=== PATIENT | female | born 1955 | race Caucasian/White ===

== ENCOUNTER 2016-09-22 10:57 | Outpatient (CLI) | payer OTHER ==
--- NOTE | 2016-09-24 08:00 | Mammography Report ---
DIGITAL SCREENING MAMMOGRAM: 09/22/2016 CLINICAL INDICATION: A 61-year-old nulliparous patient with history of benign right breast biopsy fo r screening. COMPARISON: 09/2015, 06/2014, 05/2013, 05/2012 TECHNIQUE: Routine CC and MLO projections were obtained of the breasts as well as bilateral laterall y exaggerated craniocaudal views. FINDINGS: The breasts again demonstrate heterogeneously dense fibroglandular parenchyma bilaterally. Biopsy marker in the right upper outer posterior breast is stable. A few punctate, typically benig n calcifications are present. No suspicious masses, clustered microcalcifications, or regions of arc hitectural distortion are identified. IMPRESSION: BENIGN FINDINGS. RECOMMENDATION: Routine annual screening unless otherwise clinically indicated. BIRADS CATEGORY 2 - BENIGN FINDINGS. STANDARD QUALIFYING STATEMENTS 1. This examination was reviewed with the aid of Computer-Aided Detection (CAD). 2. A negative or benign imaging report should not delay biopsy if clinically suspicious findings are present. Consider surgical consultation if warranted. More than 5% of cancers are not identified by i maging. 3. Dense breasts may obscure an underlying neoplasm. JOB #: [id number] EXT JOB #:[id number]
== END 2016-09-22 10:58 | disposition home or self-care (01) ==
LOC: DI.N 10:57
PROVIDERS: ATTEND Nurse Practitioner Primary Care
DX: Z12.31 Encounter for screening mammogram for malignant neoplasm of breast (principal)
CPT/HCPCS: 77067

== ENCOUNTER 2016-12-15 12:06 | Outpatient (CLI) | payer OTHER ==
--- NOTE | 2016-12-15 15:38 | CT Report ---
CT OF THE SINUSES: 12/15/2016 CLINICAL INDICATION: Sinusitis. TECHNIQUE: Axial CT images of the paranasal sinuses were obtained without intravenous contrast. Sagit gabriel and coronal reconstructions were performed. FINDINGS: There is mucosal thickening and an air fluid level in the right maxillary sinus, compatibl e with acute on chronic sinusitis. The right ostiomeatal unit is occluded by soft tissue. The left os tiomeatal unit is patent. The left maxillary sinus is clear, as are the ethmoid air cells, frontal si nuses, and sphenoid sinus. The septum is midline. No osseous destruction is seen. The visualized orbi gabriel contents are unremarkable. IMPRESSION: ACUTE ON CHRONIC RIGHT MAXILLARY SINUSITIS. In accordance with CT protocol optimization, one or more of the following dose reduction techniques w ere utilized for this exam: automated exposure control, adjustment of mA and/or KV based on patient size, or use of iterative reconstructive technique. JOB #: [id number] EXT JOB #:[id number]
== END 2016-12-15 12:07 | disposition home or self-care (01) ==
LOC: DI 12:06
PROVIDERS: ATTEND Otolaryngology
DX: J01.00 Acute maxillary sinusitis, unspecified (principal); J32.0 Chronic maxillary sinusitis
CPT/HCPCS: 70486

== ENCOUNTER 2017-03-11 10:31 | Outpatient (CLI) | payer OTHER ==
[2017-03-11 10:57] LABS: BASOPHILS # (AUTO) 0.1 10^3/uL (0.0-0.1); BASOPHILS % (AUTO) 1.8 %; EOSINOPHILS # (AUTO) 0.6 10^3/uL (0.0-0.7); HCT - HEMATOCRIT 38.5 % (37.0-47.0); LYMPHOCYTES # (AUTO) 2.2 10^3/uL (1.5-3.5); LYMPHOCYTES % (AUTO) 26.6 %; MEAN CORPUSCULAR HEMOGLOBIN 29.3 pg (27.0-31.0); MEAN CORPUSCULAR HGB CONC 33.8 g/dL (32.0-36.0); MEAN CORPUSCULAR VOLUME 86.6 fL (81.0-99.0); MEAN PLATELET VOLUME 9.1 fL (7.9-10.8); MONOCYTES # (AUTO) 0.5 10^3/uL (0.0-1.0); MONOCYTES % (AUTO) 6.6 %; NEUTROPHILS # (AUTO) 4.8 10^3/uL (1.5-6.6); RED BLOOD COUNT 4.45 10^6/uL (4.20-5.40); UNCORRECTED WHITE BLOOD COUNT 8.2 x10^3/uL; WHITE BLOOD COUNT 8.2 x10^3/uL (4.8-10.8)
[2017-03-11 11:13] LABS: ALBUMIN/GLOBULIN RATIO 1.3 (1.0-2.2); BILIRUBIN,TOTAL 0.2 mg/dL (0.2-1.0); BUN - BLOOD UREA NITROGEN 17 mg/dL (6-20); CALCIUM 9.4 mg/dL (8.5-10.3); CARBON DIOXIDE - CO2 28 mmol/L (21-32); CHLORIDE 103 mmol/L (101-111); CHOL/HDL RATIO 3.5 (<4.4); CHOLESTEROL 183 mg/dL; CREATININE 0.8 mg/dL (0.4-1.0); GFR - MDRD 72 (>89); GLUCOSE 97 mg/dL (70-100); HDL CHOLESTEROL 53 mg/dL; LDL/HDL RATIO 2.2 (<4.4); POTASSIUM 3.7 mmol/L (3.5-5.0); SODIUM 138 mmol/L (135-145); TOTAL PROTEIN 6.7 g/dL (6.7-8.2); TRIGLYCERIDES 64 mg/dL; VLDL CHOLESTEROL 13 mg/dL
== END 2017-03-11 10:32 | disposition home or self-care (01) ==
LOC: LAB 10:31
PROVIDERS: ATTEND Nurse Practitioner Primary Care
DX: N18.3 Chronic kidney disease, stage 3 (moderate) (principal); Z13.29 Encounter for screening for other suspected endocrine disorder; Z86.39 Personal history of other endocrine, nutritional and metabolic disease
CPT/HCPCS: 36415; 80053; 80061; 84443; 85025

== ENCOUNTER 2017-03-20 13:02 | Outpatient (CLI) | payer OTHER ==
--- NOTE | 2017-03-20 16:47 | DEXA Report ---
DEXA SCAN: 03/20/2017 INDICATION: Bone mineral density screening. TECHNIQUE: Standard DEXA images of the left femur and spine. Dual energy x-ray absorptiometry (DXA) was performed on a [employer] system. Regions measured are the AP spine, femoral neck, and, if needed, forearm. COMPARISON: None. In accordance with the International Society for Clinical Densitometry (ISCD) guidelines, data from previous exams may be reanalyzed using current recommendations and techniques. This is done to allow a more accurate basis for comparison with the current study. FINDINGS Data for the lumbar spine is as follows: REGION BMD (g/cm/cm) T-SCORE Z-SCORE L1 1.244 0.9 2.8 L2 1.620 3.5 5.4 L3 1.842 5.4 7.2 L4 2.035 7.0 8.8 TOTAL 1.699 4.3 6.2 . Data for the hip is as follows: REGION BMD (g/cm/cm) T-SCORE Z-SCORE Neck 0.945 -0.7 1.0 TOTAL 1.053 0.4 1.7 NOTE: The femoral neck or total proximal femur, whichever is lowest, is used for classification. Femoral neck bone mineral density 0.945 g/cm2. T-score -0.7 and Z-score 1.0. WHO classification is NORMAL. Evaluation of L1 ONLY. Bone mineral density of the lumbar spine 1.244 g/cm2. T- score 0.9 with Z-score 2.8. WHO classification is NORMAL. IMPRESSION WHO CLASSIFICATION BASED ON THE INTERNATIONAL REFERENCE STANDARD: NORMAL. FRACTURE RISK IS NOT INCREASED. RECOMMENDATION: Patients with diagnosis of osteoporosis or osteopenia should have regular bone mineral density assessment. For those eligible for Medicare, routine testing is allowed once every 2 years. Testing frequency can be increased for patients who have rapidly progressing disease or for those who are receiving medical therapy to restore bone mass. COMMENT: World Health Organization (WHO) definitions for osteoporosis and osteopenia: NORMAL BMD: T-score at 1.0 or higher, fracture risk is low. OSTEOPENIA BMD: T-score between 1.0 and -2.5, fracture risk is increased. OSTEOPOROSIS BMD: T-score at 2.5 or lower, fracture risk high. National Osteoporosis Foundation recommends: 1. Obtain adequate dietary calcium (at least 1200 mg per day) and vitamin D (400 -800 international units per day). 2. Participate, as appropriate, in regular weightbearing and muscle- strengthening exercise. 3. Avoid tobacco use and reduce alcohol and caffeine intake. 4. For more detailed information see the website at www.NOF.org. TD: 03/20/2017 15:05 LASHAY
== END 2017-03-20 13:03 | disposition home or self-care (01) ==
LOC: DI 13:02
PROVIDERS: ATTEND Nurse Practitioner Primary Care
DX: Z13.820 Encounter for screening for osteoporosis (principal)
CPT/HCPCS: 77080

== ENCOUNTER 2017-10-06 11:45 | Outpatient (CLI) | payer OTHER ==
--- NOTE | 2017-10-08 16:39 | Mammography Report ---
Procedure Date: 10/06/2017 Accession Number: [id number] / [id number] Procedure: MGN - Screening Mammo Dig Bilat CPT Code: FULL RESULT: EXAM: Screening Mammo Dig Bilat DATE: 10/06/2017 12:06 PM CLINICAL HISTORY: 62 year-old nulliparous female with history of early menses and family history of breast cancer in a grandmother at age 80 and cousin at age approximately 45 presents for screening mammogram. The patient had a needle biopsy of the right breast with benign pathology results. TECHNIQUE: Bilateral CC and MLO views were obtained. COMPARISON: 09/22/2016, 09/14/2015, 06/20/2014, 05/25/2013. FINDINGS: The breasts demonstrate heterogeneously dense fibroglandular parenchyma bilaterally. There are stable postbiopsy changes in the right breast, typically benign. Typically benign coarse calcifications are seen bilaterally. No suspicious masses, clustered microcalcifications, or regions of architectural distortion are identified. IMPRESSION: Benign findings RECOMMENDATION: Routine annual screening unless otherwise clinically indicated. BIRADS CATEGORY 2: Benign findings STANDARD QUALIFYING STATEMENTS: 1. This examination was reviewed with the aid of Computer-Aided Detection (CAD). 2. A negative or benign imaging report should not delay biopsy if clinically suspicious findings are present. Consider surgical consultation if warrented. More than 5% of cancers are not identified by imaging. 3. Dense breasts may obscure an underlying neoplasm.
== END 2017-10-06 11:46 | disposition home or self-care (01) ==
LOC: DI.N 11:45
PROVIDERS: ATTEND Nurse Practitioner Primary Care
DX: Z12.31 Encounter for screening mammogram for malignant neoplasm of breast (principal); Z80.3 Family history of malignant neoplasm of breast
CPT/HCPCS: 77067

== ENCOUNTER 2018-03-03 08:48 | Day surgery (SDC) | payer MEDICARE, OTHER ==
[2018-03-03] MEDS ORDERED: LACTATED RINGERS 1,000 ML IV ONE ×3 (09:35→11:20)
[2018-03-03] MEDS ORDERED: MIDAZOLAM 2 MG/2 ML VIAL IVP ONE (10:33)
[2018-03-03] MEDS ORDERED: fentaNYL 250 MCG/5 ML VIAL IVP ONE (10:33)
[2018-03-03 11:40] VITALS: BP 82/40
== END 2018-03-03 08:49 | disposition home or self-care (01) ==
LOC: SDS 08:48
PROVIDERS: ATTEND Internal Medicine
PROC: 0DJD8ZZ Inspection of Lower Intestinal Tract, Via Natural or Artificial Opening Endoscopic (ICD-10-PCS; principal; 2018-03-03 10:00)
DX: Z12.11 Encounter for screening for malignant neoplasm of colon (principal); Z86.010 Personal history of colon polyps; K57.30 Diverticulosis of large intestine without perforation or abscess without bleeding; K64.8 Other hemorrhoids
CPT/HCPCS: G0105; J3010; J7120

== ENCOUNTER 2018-03-29 08:27 | Outpatient (CLI) | payer MEDICARE, OTHER ==
[2018-03-29 08:45] LABS: BASOPHILS # (AUTO) 0.1 10^3/uL (0.0-0.1); BASOPHILS % (AUTO) 1.4 %; EOSINOPHILS # (AUTO) 0.3 10^3/uL (0.0-0.7); EOSINOPHILS % (AUTO) 3.8 %; HGB - HEMOGLOBIN 13.7 g/dL (12.0-16.0); LYMPHOCYTES % (AUTO) 28.3 %; MEAN CORPUSCULAR HEMOGLOBIN 29.7 pg (27.0-31.0); MEAN CORPUSCULAR VOLUME 87.5 fL (81.0-99.0); MEAN PLATELET VOLUME 9.7 fL (7.9-10.8); MONOCYTES # (AUTO) 0.6 10^3/uL (0.0-1.0); MONOCYTES % (AUTO) 8.2 %; NEUTROPHILS # (AUTO) 4.1 10^3/uL (1.5-6.6); NEUTROPHILS % (AUTO) 58.3 %; PLT - PLATELET COUNT 223 10^3/uL (130-450); RED BLOOD COUNT 4.62 10^6/uL (4.20-5.40); RED CELL DISTRIBUTION WIDTH 13.2 % (12.0-15.0); WHITE BLOOD COUNT 6.9 x10^3/uL (4.8-10.8)
[2018-03-29 09:05] LABS: ALBUMIN 4.1 g/dL (3.2-5.5); ALBUMIN/GLOBULIN RATIO 1.5 (1.0-2.2); ALKALINE PHOSPHATASE 47 IU/L (42-121); ALT ALANINE AMINOTRANSFERASE 18 IU/L (10-60); AST ASPARTATE AMINOTRANSFERASE 22 IU/L (10-42); BILIRUBIN,TOTAL 0.6 mg/dL (0.2-1.0); BUN - BLOOD UREA NITROGEN 14 mg/dL (6-20); CALCIUM 9.4 mg/dL (8.5-10.3); CARBON DIOXIDE - CO2 28 mmol/L (21-32); CHLORIDE 104 mmol/L (101-111); CHOL/HDL RATIO 3.1 (<4.4); CHOLESTEROL 175 mg/dL; CREATININE 0.8 mg/dL (0.4-1.0); GFR - MDRD 72 (>89); GLUCOSE 104 mg/dL (70-100); HDL CHOLESTEROL 57 mg/dL; LDL CHOLESTEROL,CALCULATED 104 mg/dL; LDL/HDL RATIO 1.8 (<4.4); SODIUM 139 mmol/L (135-145); TOTAL PROTEIN 6.9 g/dL (6.7-8.2); VLDL CHOLESTEROL 14 mg/dL
== END 2018-03-29 08:28 | disposition home or self-care (01) ==
LOC: LAB 08:27
PROVIDERS: ATTEND Nurse Practitioner Primary Care
DX: Z79.899 Other long term (current) drug therapy (principal); Z86.39 Personal history of other endocrine, nutritional and metabolic disease
CPT/HCPCS: 36415; 80053; 80061; 83721; 85025

== ENCOUNTER 2018-10-07 13:21 | Outpatient (CLI) | payer MEDICARE, OTHER ==
--- NOTE | 2018-10-08 11:33 | Mammography Report ---
Reason: SCREENING MAMMO Procedure Date: 10/07/2018 Accession Number: [id number] / [id number] Procedure: MANAS - Screening Mammo w/Narendra CPT Code: FULL RESULT: EXAM: Screening Mammo w/Narendra DATE: 10/07/2018 2:12 PM CLINICAL HISTORY: Screening encounter. History of early menses and nulliparity. History of benign right breast biopsy. TECHNIQUE: (B) - Bilateral CC, laterally exaggerated CC, MLO views were obtained. COMPARISON: 10/06/2017 through 06/20/2014. PARENCHYMAL PATTERN: (D) - The breast(s) demonstrate(s) heterogeneously dense fibroglandular parenchyma. FINDINGS: A biopsy marker is seen in the right breast posteriorly. There are no suspicious masses, calcifications, or areas of distortion. IMPRESSION: Benign findings. BI-RADS category 2. RECOMMENDATION: (ANNUAL) - Recommend routine annual screening mammography. BI-RADS CATEGORY: (2) - Benign Findings. STANDARD QUALIFYING STATEMENTS: 1. This examination was not reviewed with the aid of Computer-Aided Detection (CAD). 2. A negative or benign imaging report should not preclude biopsy if clinically suspicious findings are present. 3. Dense breasts may obscure an underlying neoplasm. 4. This examination was reviewed with the aid of 3D breast imaging (tomosynthesis).
== END 2018-10-07 13:22 | disposition home or self-care (01) ==
LOC: DI 13:21
PROVIDERS: ATTEND Nurse Practitioner
DX: Z12.31 Encounter for screening mammogram for malignant neoplasm of breast (principal)
CPT/HCPCS: 77063; 77067

== ENCOUNTER 2019-06-01 08:57 | Outpatient (CLI) | payer MEDICARE, OTHER ==
[2019-06-01 09:10] LABS: BASOPHILS # (AUTO) 0.1 10^3/uL (0.0-0.1); BASOPHILS % (AUTO) 1.4 %; EOSINOPHILS # (AUTO) 0.3 10^3/uL (0.0-0.7); EOSINOPHILS % (AUTO) 4.6 %; HGB - HEMOGLOBIN 13.5 g/dL (12.0-16.0); LYMPHOCYTES % (AUTO) 34.8 %; MEAN CORPUSCULAR HEMOGLOBIN 29.6 pg (27.0-31.0); MEAN CORPUSCULAR HGB CONC 33.2 g/dL (32.0-36.0); MEAN CORPUSCULAR VOLUME 89.3 fL (81.0-99.0); MEAN PLATELET VOLUME 11.2 fL (7.9-10.8); MONOCYTES # (AUTO) 0.5 10^3/uL (0.0-1.0); MONOCYTES % (AUTO) 8.8 %; NEUTROPHILS # (AUTO) 2.9 10^3/uL (1.5-6.6); NEUTROPHILS % (AUTO) 50.1 %; PLT - PLATELET COUNT 248 10^3/uL (130-450); RED BLOOD COUNT 4.56 10^6/uL (4.20-5.40); RED CELL DISTRIBUTION WIDTH 12.8 % (12.0-15.0); WHITE BLOOD COUNT 5.8 x10^3/uL (4.8-10.8)
[2019-06-01 09:26] LABS: ALBUMIN 4.2 g/dL (3.2-5.5); ALBUMIN/GLOBULIN RATIO 1.7 (1.0-2.2); ALKALINE PHOSPHATASE 42 IU/L (42-121); ALT ALANINE AMINOTRANSFERASE 17 IU/L (10-60); AST ASPARTATE AMINOTRANSFERASE 23 IU/L (10-42); BILIRUBIN,TOTAL 0.6 mg/dL (0.2-1.0); BUN - BLOOD UREA NITROGEN 16 mg/dL (6-20); CALCIUM 9.4 mg/dL (8.5-10.3); CARBON DIOXIDE - CO2 27 mmol/L (21-32); CHLORIDE 105 mmol/L (101-111); CHOLESTEROL 175 mg/dL; CREATININE 0.9 mg/dL (0.4-1.0); GLUCOSE 104 mg/dL (70-100); HDL CHOLESTEROL 58 mg/dL; LDL CHOLESTEROL,CALCULATED 106 mg/dL; LDL/HDL RATIO 1.8 (<4.4); SODIUM 139 mmol/L (135-145); TOTAL PROTEIN 6.7 g/dL (6.7-8.2); VLDL CHOLESTEROL 11 mg/dL
== END 2019-06-01 08:58 | disposition home or self-care (01) ==
LOC: LAB 08:57
PROVIDERS: ATTEND Nurse Practitioner
DX: G47.00 Insomnia, unspecified (principal); F32.9 Major depressive disorder, single episode, unspecified; R73.01 Impaired fasting glucose; Z79.899 Other long term (current) drug therapy; Z86.39 Personal history of other endocrine, nutritional and metabolic disease; N18.3 Chronic kidney disease, stage 3 (moderate); G43.909 Migraine, unspecified, not intractable, without status migrainosus
CPT/HCPCS: 36415; 80053; 80061; 83721; 84443; 85025

== ENCOUNTER 2019-12-01 13:14 | Outpatient (CLI) | payer MEDICARE, OTHER ==
--- NOTE | 2019-12-01 14:21 | XRAY Report ---
PROCEDURE: Cervical Spine 2 View INDICATIONS: NECK PAIN,LOW BACK PX,SCOLIOSIS,MENOPAUSE TECHNIQUE: 3 view(s) of the cervical spine were acquired. COMPARISON: None. FINDINGS: Bones: No fractures or dislocations to the C7-T1 level. The lateral masses of C1 appear intact on t he odontoid view. No suspicious bony lesions. Moderate degenerative changes present within the mid cervical spine including intervertebral disc space narrowing, endplate sclerosis, and osteophytosis. Soft tissues: No prevertebral soft tissue swelling. IMPRESSION: Moderate degenerative change of the mid cervical spine. Reviewed by: Nasreen Obregon MD on 12/01/2019 2:20 PM PDT Approved by: Nasreen Obregon MD on 12/01/2019 2:20 PM PDT Station ID: [id number]
--- NOTE | 2019-12-01 14:22 | XRAY Report ---
PROCEDURE: Thoracic Spine 2 View INDICATIONS: SCOLIOSIS, CHRONIC NECK BACK PAIN TECHNIQUE: 3 views of the thoracic spine were acquired. COMPARISON: None. FINDINGS: Bones: No fractures or dislocations. No suspicious bony lesions. 12 pairs of ribs are noted, and a ppear intact where visualized. There is mild intervertebral disc space narrowing throughout the thora cic spine which is likely age-related. There is left lateral listhesis at L1-2 which is incompletely characterized on this limited view of the lumbar spine. Soft tissues: No paravertebral stripe thickening. IMPRESSION: Mild intervertebral disc space narrowing. No compression deformities. Reviewed by: Nasreen Obregon MD on 12/01/2019 2:21 PM PDT Approved by: Nasreen Obregon MD on 12/01/2019 2:21 PM PDT Station ID: [id number]
--- NOTE | 2019-12-01 14:25 | XRAY Report ---
PROCEDURE: Lumbar Spine 2 View INDICATIONS: SCOLIOSIS, CHRONIC NECK BACK PAIN TECHNIQUE: 2 views of the lumbar spine were acquired. COMPARISON: None. FINDINGS: Bones: There are 6 nonrib-bearing lumbar vertebral bodies. For the sake of numbering, these are label ed as L1-L6. There is 23 degrees right convex scoliosis of the lumbar spine centered at L3. Grade I l eft lateral listhesis is present at L1-2. Soft tissues: Overlying bowel gas pattern is normal. No s uspicious soft tissue calcifications. Severe degenerative changes are present within the superior lum bar spine including intervertebral disc space narrowing, endplate sclerosis, osteophytosis, and vacuu m disc phenomenon. Facet sclerosis is present within the lower lumbar spine. IMPRESSION: 1. Severe degenerative change. 2. Right convex scoliosis. 3. 6 nonrib-bearing lumbar vertebral bodies noted. Reviewed by: Nasreen Obregon MD on 12/01/2019 2:24 PM PDT Approved by: Nasreen Obregon MD on 12/01/2019 2:24 PM PDT Station ID: [id number]
== END 2019-12-01 13:15 | disposition home or self-care (01) ==
LOC: DI 13:14
PROVIDERS: ATTEND Nurse Practitioner
DX: M47.892 Other spondylosis, cervical region (principal); M50.320 Other cervical disc degeneration, mid-cervical region, unspecified level; M51.36 Other intervertebral disc degeneration, lumbar region; M41.86 Other forms of scoliosis, lumbar region; Z78.0 Asymptomatic menopausal state
CPT/HCPCS: 72040; 72070; 72100

== ENCOUNTER 2020-02-03 10:58 | Outpatient (CLI) | payer MEDICARE, OTHER ==
--- NOTE | 2020-02-03 12:29 | DEXA Report ---
PROCEDURE: Dexa Spine and/or Hip INDICATIONS: MENOPAUSE TECHNIQUE: Dual energy x-ray absorptiometry (DXA) was performed on a [employer] System. Regions measur ed are the AP Spine, femoral neck, and if needed forearm. COMPARISON: None. FINDINGS: Lumbar Spine: Bone Mineral Density 1.560 g/cm/cm,T score 3.2, Left Hip: Bone Mineral Density 1.008 g/cm/cm,T score 0.0, Left Femoral Neck: Bone Mineral Density 0.895 g/cm/cm, T score -1.0, (T score greater or equal to -1.0: NORMAL) (T score from -1.1 to -2.4: OSTEOPENIA) (T score less than or equal to -2.5 to: OSTEOPOROSIS) Impression: Normal bone mineral density. Patients with diagnosis of osteoporosis or osteopenia should have regular bone mineral density assess ment. For those eligible for Medicare, routine testing is allowed once every 2 years. Testing frequ ency can be increased for patients who have rapidly progressing disease or for those who are receivin g medical therapy to restore bone mass. Reviewed by: Jseus Mack on 02/03/2020 12:27 PM PST Approved by: Jesus Mack on 02/03/2020 12:27 PM PST Station ID: [id number]
== END 2020-02-03 10:59 | disposition home or self-care (01) ==
LOC: DI 10:58
PROVIDERS: ATTEND Nurse Practitioner
DX: Z78.0 Asymptomatic menopausal state (principal)
CPT/HCPCS: 77080

== ENCOUNTER 2020-02-14 11:41 | Outpatient (CLI) | payer MEDICARE, OTHER ==
--- NOTE | 2020-02-15 05:44 | Mammography Report ---
BILATERAL DIGITAL SCREENING MAMMOGRAM 3D/2D: 02/14/2020 CLINICAL: Routine screening. Comparison is made to exams dated: 10/07/2018 mammogram, 10/06/2017 mammogram, 09/22/2016 mammogram, an d 09/14/2015 mammogram - [facility]. The tissue of both breasts is heterogeneously d ense. This may lower the sensitivity of mammography. No significant masses, calcifications, or other findings are seen in either breast. There has been no significant interval change. IMPRESSION: NEGATIVE There is no mammographic evidence of malignancy. A 1 year screening mammogram is recommended. This exam was interpreted at Station ID: [id number]. NOTE: For mammograms, a report in lay terms will be sent to the patient. Approximately 15% of breast malignancies will not be visualized mammographically. In the management of a palpable breast mass, a negative mammogram must not discourage biopsy of a clinically suspicious lesion. Electronically Signed By: Chavez mix/alea:02/14/2020 17:07:17 ACR BI-RADS Category 1: Negative 3341F PARENCHYMAL PATTERN: (D) - The breast(s) demonstrate(s) heterogeneously dense fibroglandular agus bach. BI-RADS CATEGORY: (1) - 1 RECOMMENDATION: (ANNUAL) - Recommend routine annual screening mammography. [id number] 1 year screening LATERALITY: (B)
== END 2020-02-14 11:42 | disposition home or self-care (01) ==
LOC: DI.N 11:41
PROVIDERS: ATTEND Nurse Practitioner
DX: Z12.31 Encounter for screening mammogram for malignant neoplasm of breast (principal)

== ENCOUNTER 2020-09-03 10:16 | Emergency (ER) | payer MEDICARE, OTHER ==
[2020-09-03 10:44] VITALS: BP 106/58
[2020-09-03] MEDS ORDERED: MELOXICAM 7.5 MG TABLET PO STA (12:27)
--- NOTE | 2020-09-03 12:41 | ED Physician Documentation ---
PD HPI BACK PAIN - Stated complaint Stated Complaint: BACK PX - Chief complaint Chief Complaint: Back Pain - History obtained from History obtained from: Patient - History of Present Illness Timing - onset: How many days ago (2) Timing - duration: Days (2) Pain level max: 8 Pain level now: 5 Location: Lower, Right Quality: Pain, Spasm, Similar to prior episodes Associated symptoms: No: Fever, Weakness, Numbness, Incontinent of urine, Unable to urinate, Hematuria, Incontinent of stool Improves with: Rest Worsened by: Movement Contributing factors: Other (using a weed whacker and gardening) Similar symptoms before: Diagnosis (sciatica) Recently seen: Not recently seen - Additional information Additional information: Patient is a 65-year-old female who presents to the emergency department stating that her back feels like it is tightening up. Has a history of sciatica. She states was working in the garden and using a weed eater all weekend. Worse with movement, better with rest. Took her 's muscle relaxant which seems to have helped her pain. No loss of bowel or bladder control. No fevers. No IV drug use. 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, Other HEENT: Tonsil/Adenoidectomy - Present Medications Home Medications: Ambulatory Orders Medication Instructions Recorded Confirmed Budesonide [Budesonide EC] 3 mg PO 03/03/18 Itraconazole [Sporanox] 40 mg PO 03/03/18 Mupirocin 40 gm TP 03/03/18 Sumatriptan Succinate [Imitrex] 100 mg PO 03/03/18 Temazepam 15 mg PO 03/03/18 nadoloL [Nadolol] 40 mg PO 03/03/18 Meloxicam [Mobic] 7.5 mg PO BID PRN #20 tablet 09/03/20 methocarbamoL [Robaxin] 500 mg PO Q6H PRN #20 tablet 09/03/20 - Allergies Allergies/Adverse Reactions: Allergies Allergy/AdvReac Type Severity Reaction Status Date / Time No Known Drug Allergies Allergy Verified 09/03/20 10:44 - Social History Does the pt smoke?: No Smoking Status: Never smoker PD ED PE NORMAL - Vitals Vital signs reviewed: Yes - General General: Alert and oriented X 3, No acute distress, Well developed/nourished - HEENT HEENT: Moist mucous membranes - Neck Neck: Supple, no meningeal sign - Cardiac Cardiac: RRR, Strong equal pulses - Respiratory Respiratory: No respiratory distress, Clear bilaterally - Abdomen Abdomen: Soft, Non tender, Non distended - Back Back: No spinal TTP, Other (No midline tenderness to palpation or percussion. No step-off or deformity. Mild paraspinal spasm right greater than left.) - Derm Derm: Warm and dry - Extremities Extremities: No deformity, No edema, No calf tenderness / cord - Neuro Neuro: Alert and oriented X 3, No motor deficit, No sensory deficit, Other (Normal bilateral lower extremity patellar and ankle jerk reflexes. Normal great toe extension bilaterally. no saddle anesthesia) - Psych Psych: Normal mood, Normal affect Results - Vitals Vitals: Vital Signs - 24 hr 09/03/20 10:42 Temperature 36.0 C L Heart Rate 56 L Respiratory 16 Rate Blood Pressure 106/58 L O2 Saturation 99 Oxygen O2 Source Room air PD MEDICAL DECISION MAKING - ED course Complexity details: considered differential (No cauda equina, no spinal epidural abscess, no fracture, no aortic dissection or evidence of aneursym rupture), d/w patient ED course: 65-year-old female with chronic back pain that appears to be worsened after gardening and using a weed Devaughn. We will place her on anti-inflammatories and muscle relaxants for home. No evidence of cauda equina, epidural abscess. No current sciatica. Ambulating well. Patient counseled regarding signs and symptoms for which I believe and urgent re-evaluation would be necessary. Patient with good understanding of and agreement to plan and is comfortable going home at this time This document was made in part using voice recognition software. While efforts are made to proofread this document, sound alike and grammatical errors may occur. No indication for emergent imaging. Departure - Departure Disposition: 01 Home, Self Care Clinical Impression: Back spasm Condition: Good Instructions: ED Spasm Back No Trauma Follow-Up: Your,doctor in 1 week [Other] Prescriptions: Meloxicam [Mobic] 7.5 mg PO BID PRN #20 tablet PRN Reason: Pain methocarbamoL [Robaxin] 500 mg PO Q6H PRN #20 tablet PRN Reason: muscle spasm Comments: Follow-up with your doctor for further care. Use the medications as prescribed. Continue to gently stretch her back. This should improve over the next week. Avoid heavy lifting and repetitive movements with your back. Do not drive or operate heavy machinery while taking the Robaxin Discharge Date/Time: 09/03/20 12:46
== END 2020-09-03 12:46 | disposition home or self-care (01) ==
LOC: ED 10:16
DX: M62.830 Muscle spasm of back (principal); X50.9XXA Other and unspecified overexertion or strenuous movements or postures, initial encounter; Y93.H2 Activity, gardening and landscaping; M54.5 Low back pain; G89.29 Other chronic pain
CPT/HCPCS: 99282; 99284; A9270

== ENCOUNTER 2020-09-05 12:53 | Outpatient (CLI) | payer MEDICARE, OTHER ==
--- NOTE | 2020-09-05 13:23 | XRAY Report ---
PROCEDURE: Lumbar Spine 2 View INDICATIONS: LUMBAR BACK PAIN WITH RADICULOPATHY TECHNIQUE: 2 views of the lumbar spine were acquired. COMPARISON: Similar plain film imaging 12/01/99. FINDINGS: Bones: 5 xiw-wdr-euzzuvy vertebrae are present. There is scoliotic bony alignment. No vertebral jacqueline dy compression fractures. No suspicious bony lesions. The degenerative changes are most pronounced at the left margin of the lumbosacral scoliotic curvature, which is mild to moderate in overall promi nence. No compression fractures seen, no subluxation is found. Soft tissues: Overlying bowel gas pattern is normal. No suspicious soft tissue calcifications. IMPRESSION: Convex rightward scoliosis centered at the lumbosacral spine, no trauma found, severity of scoliosis has not worsened. The degenerative disc disease over the middle and lower thirds of the lumbosacral spine is moderately severe overall and there is potential for significant spinal and fora viri stenosis at L1 for 5 and L5-S1. Reviewed by: Rc Simpson MD on 09/05/2020 1:22 PM PDT Approved by: Rc Simpson MD on 09/05/2020 1:22 PM PDT Station ID: [id number]
== END 2020-09-05 12:54 | disposition home or self-care (01) ==
LOC: DI 12:53
PROVIDERS: ATTEND Family Medicine
DX: M51.17 Intervertebral disc disorders with radiculopathy, lumbosacral region (principal); M41.87 Other forms of scoliosis, lumbosacral region

== ENCOUNTER 2020-09-19 08:16 | Outpatient (CLI) | payer MEDICARE, OTHER ==
--- NOTE | 2020-09-19 10:35 | MRI Report ---
PROCEDURE: Lumbar Spine W/O INDICATIONS: LUMBAR BACK PAIN TECHNIQUE: Noncontrast sagittal T1 spin echo and T2 fast echo, sagittal STIR, coronal T2, axial T1 and T2 fast s pin echo through the lumbar spine. COMPARISON: Plain films dated 09/05/2020 FINDINGS: Image quality: Excellent. Alignment and Curvature: 5 lumbar type vertebral bodies are present by plain film. Loss of normal lum bar lordosis is present. Mild kyphosis at L1-L2. Mild grade 1 retrolisthesis of L1 on L2, L2 on L3, L 3 on L4, and L4 on L5. Moderate rightward curvature of the upper lumbar spine. Bone Marrow: Marrow is of normal overall signal. No acute vertebral body compression fractures. Mi ld reactive signal within the end plates adjacent to the L1-L2, L2-L3, L3-L4, and L4-L5 intervertebra l discs. Spinal Cord: Conus medullaris terminates at the upper L1 level. Visualized cord demonstrates normal signal and size. Paraspinous Soft Tissues: No paravertebral masses. T12-L1: Moderate disc height loss and desiccation. Mild diffuse disc bulge. Mild facet and ligament flavum hypertrophy. Mild epidural lipomatosis. Mild canal stenosis. Mild right and moderate left fora viri stenosis. L1-L2: Severe disc height loss and desiccation. Mild diffuse disc bulge. Mild facet hypertrophy bi laterally. Mild canal stenosis. Mild bilateral foraminal stenosis. L2-L3: Severe disc height loss and desiccation. Mild diffuse disc bulge. Mild facet and ligament f lavum hypertrophy. Mild epidural lipomatosis. Mild canal stenosis. Mild bilateral foraminal stenosis. L3-L4: Severe disc height loss and desiccation. Mild diffuse disc bulge. Mild facet and ligament fl avum hypertrophy. Mild canal stenosis. Moderate left and mild right foraminal stenosis. L4-L5: Moderate disc height loss and desiccation. Mild diffuse disc bulge. Mild facet and ligament flavum hypertrophy. Mild epidural lipomatosis. Mild canal stenosis. Moderate bilateral foraminal sten osis. L5-S1: Mild diffuse disc bulge. Mild bilateral facet hypertrophy. Mild canal stenosis. Moderate sub articular foraminal stenosis bilaterally. IMPRESSION: 1. Multilevel degenerative disc and facet disease, in addition to epidural lipomatosis and ligamentum flavum hypertrophy. 2. Mild multilevel canal stenoses. 3. Multilevel foraminal stenoses, worst at L3-L4, L4-L5, and L5-S1 where there are moderate foraminal stenoses. Reviewed by: Anitra Garcia MD on 09/19/2020 10:34 AM PDT Approved by: Anitra Garcia MD on 09/19/2020 10:34 AM PDT Station ID: [id number]
== END 2020-09-19 08:17 | disposition home or self-care (01) ==
LOC: DI 08:16
PROVIDERS: ATTEND Family Medicine
DX: M51.36 Other intervertebral disc degeneration, lumbar region (principal); M48.061 Spinal stenosis, lumbar region without neurogenic claudication; M51.37 Other intervertebral disc degeneration, lumbosacral region; M48.07 Spinal stenosis, lumbosacral region; M47.816 Spondylosis without myelopathy or radiculopathy, lumbar region; M47.817 Spondylosis without myelopathy or radiculopathy, lumbosacral region

== ENCOUNTER 2020-12-06 11:54 | Outpatient (CLI) | payer MEDICARE, OTHER ==
[2020-12-06 17:49] LABS: BASOPHILS # (AUTO) 0.1 10^3/uL (0.0-0.1); BASOPHILS % (AUTO) 1.1 %; EOSINOPHILS # (AUTO) 0.4 10^3/uL (0.0-0.7); EOSINOPHILS % (AUTO) 4.1 %; HCT - HEMATOCRIT 41.7 % (37.0-47.0); HGB - HEMOGLOBIN 13.3 g/dL (12.0-16.0); LYMPHOCYTES # (AUTO) 2.4 10^3/uL (1.5-3.5); LYMPHOCYTES % (AUTO) 27.5 %; MEAN CORPUSCULAR HEMOGLOBIN 29.3 pg (27.0-31.0); MEAN CORPUSCULAR HGB CONC 31.9 g/dL (32.0-36.0); MEAN CORPUSCULAR VOLUME 91.9 fL (81.0-99.0); MEAN PLATELET VOLUME 11.9 fL (7.9-10.8); MONOCYTES # (AUTO) 0.7 10^3/uL (0.0-1.0); MONOCYTES % (AUTO) 7.9 %; NEUTROPHILS % (AUTO) 58.8 %; PLT - PLATELET COUNT 249 10^3/uL (130-450); RED BLOOD COUNT 4.54 10^6/uL (4.20-5.40); RED CELL DISTRIBUTION WIDTH 13.2 % (12.0-15.0); WHITE BLOOD COUNT 8.6 x10^3/uL (4.8-10.8)
[2020-12-06 18:09] LABS: ALBUMIN 4.1 g/dL (3.2-5.5); ALBUMIN/GLOBULIN RATIO 1.5 (1.0-2.2); BILIRUBIN,TOTAL 0.7 mg/dL (0.2-1.0); CREATININE 0.8 mg/dL (0.4-1.0); POTASSIUM 4.2 mmol/L (3.5-5.0); TOTAL PROTEIN 6.8 g/dL (6.7-8.2)
[2020-12-06 18:24] LABS: THYROID STIMULATING HORMONE 1.21 uIU/mL (0.34-5.60)
[2020-12-06 20:07] LABS: ESTIMATED AVERAGE GLUCOSE 114 mg/dL (70-100); HEMOGLOBIN A1c% 5.6 % (4.27-6.07)
== END 2020-12-06 23:59 | disposition home or self-care (01) ==
LOC: LAB.WCP 11:54
PROVIDERS: ATTEND Family Medicine
DX: R10.11 Right upper quadrant pain (principal); R73.01 Impaired fasting glucose; R53.83 Other fatigue
CPT/HCPCS: 36415; 80053; 83036; 83690; 84443; 85025

== ENCOUNTER 2020-12-23 09:27 | Outpatient (CLI) | payer MEDICARE, OTHER ==
--- NOTE | 2020-12-23 14:02 | Ultrasound Report ---
PROCEDURE: Abdomen Complete INDICATIONS: RIGHT UPPER QUAD ABD PAIN TECHNIQUE: Real-time scanning was performed of the abdominal and retroperitoneal organs, with image documentatio n. COMPARISON: None. FINDINGS: Liver: Liver is normal in size and demonstrates a coarse/echogenic echotexture. Within the left live r, there is a 9 mm simple cyst seen. Gallbladder: No gallstones or significant sludge can be seen. The gallbladder wall does not appear th ickened. There is no specific pericholecystic fluid. The sonographic Lopez's sign is negative. Biliary ducts: Intrahepatic bile ducts are non-dilated. Extrahepatic bile duct caliber measures 5 m m. Normal is 6-7 mm or less in diameter, or 10 mm or less post-cholecystectomy. Pancreas: Visualized portions of the pancreas are sonographically normal. Spleen: Spleen is normal in size and homogeneous in echotexture. Kidneys: The kidneys are overall not well seen, secondary to bowel gas. Right kidney measures 7.8 cm long; left kidney measures 10.1 cm long. No hydronephrosis or nephrolithiasis. No solid masses. Aorta: Visualized aorta is normal in caliber at less than 3 cm. Iliacs: Proximal common iliac arteries are normal in caliber at less than 2.5 cm. IVC: Intrahepatic inferior vena cava is patent. Miscellaneous: No free abdominal fluid. IMPRESSION: The gallbladder demonstrates a normal sonographic appearance. No biliary dilatation is seen. Likely fatty liver infiltration. Incidental note is made of: Simple appearing liver cyst Small right kidney size Reviewed by: Jhoan Velasco MD on 12/23/2020 1:01 PM [facility] Approved by: Jhoan Velasco MD on 12/23/2020 1:01 PM ISAUR[facility] Station ID: [id number]
== END 2020-12-23 09:28 | disposition home or self-care (01) ==
LOC: DI 09:27
PROVIDERS: ATTEND Family Medicine
DX: R10.11 Right upper quadrant pain (principal)

== ENCOUNTER 2021-04-05 12:57 | Outpatient (CLI) | payer MEDICARE, OTHER ==
--- NOTE | 2021-04-05 16:00 | DEXA Report ---
PROCEDURE: Dexa Spine and/or Hip INDICATIONS: SCOLIOSIS OF LUMBER REGION TECHNIQUE: Dual energy x-ray absorptiometry (DXA) was performed on a [employer] System. Regions measur ed are the AP Spine, femoral neck, and if needed forearm. COMPARISON: 03/20/2017, 02/03/2020. FINDINGS: Lumbar Spine: Bone Mineral Density 1.491 g/cm/cm,T score 2.6, with a statistically significant interval decrease of 4.4% since most recent prior study. The measured bone mineral density of the lumbar spine is spur iously elevated by degenerative disc disease and associated sclerotic endplate change. Left Hip: Bone Mineral Density 0.983 g/cm/cm,T score -0.2, statistically unchanged since the most recent prior study Left Femoral Neck: Bone Mineral Density 0.906 g/cm/cm, T score -0.9. (T score greater or equal to -1.0: NORMAL) (T score from -1.1 to -2.4: OSTEOPENIA) (T score less than or equal to -2.5 to: OSTEOPOROSIS) Impression: Normal bone mineral density. Statistically significant interval decrease in bone mineral density of the lumbar spine. The measured bone mineral density of the lumbar spine is spuriously elev ated by degenerative disc disease and associated sclerotic endplate change. Patients with diagnosis of osteoporosis or osteopenia should have regular bone mineral density assess ment. For those eligible for Medicare, routine testing is allowed once every 2 years. Testing frequ ency can be increased for patients who have rapidly progressing disease or for those who are receivin g medical therapy to restore bone mass. Reviewed by: Chandler Sneed MD on 04/05/2021 3:58 PM PST Approved by: Chandler Sneed MD on 04/05/2021 3:58 PM PST Station ID: [id number]
== END 2021-04-05 12:58 | disposition home or self-care (01) ==
LOC: DI 12:57
PROVIDERS: ATTEND Orthopaedic Surgery
DX: M41.86 Other forms of scoliosis, lumbar region (principal); M85.88 Other specified disorders of bone density and structure, other site

== ENCOUNTER 2021-05-31 12:35 | Outpatient (CLI) | payer MEDICARE, OTHER ==
[2021-05-31 14:52] LABS: HCT - HEMATOCRIT 39.4 % (37.0-47.0); HGB - HEMOGLOBIN 13.2 g/dL (12.0-16.0); MEAN CORPUSCULAR HEMOGLOBIN 29.7 pg (27.0-31.0); MEAN CORPUSCULAR HGB CONC 33.5 g/dL (32.0-36.0); MEAN CORPUSCULAR VOLUME 88.5 fL (81.0-99.0); MEAN PLATELET VOLUME 11.1 fL (7.9-10.8); RED BLOOD COUNT 4.45 10^6/uL (4.20-5.40); RED CELL DISTRIBUTION WIDTH 12.9 % (12.0-15.0); WHITE BLOOD COUNT 7.3 x10^3/uL (4.8-10.8)
[2021-05-31 15:00] LABS: ALBUMIN 4.1 g/dL (3.2-5.5); ALBUMIN/GLOBULIN RATIO 1.6 (1.0-2.2); BILIRUBIN,TOTAL 0.3 mg/dL (0.2-1.0); CALCIUM 9.4 mg/dL (8.5-10.3); CREATININE 0.9 mg/dL (0.4-1.0); TOTAL PROTEIN 6.6 g/dL (6.7-8.2)
== END 2021-05-31 12:36 | disposition home or self-care (01) ==
LOC: DI 12:35 → RT 12:36
PROVIDERS: ATTEND Orthopaedic Surgery
DX: Z01.818 Encounter for other preprocedural examination (principal); M41.86 Other forms of scoliosis, lumbar region
CPT/HCPCS: 36415; 80053; 85027; 93005

== ENCOUNTER 2021-12-25 10:19 | Outpatient (CLI) | payer MEDICARE, OTHER ==
--- NOTE | 2021-12-26 09:49 | Mammography Report ---
BILATERAL DIGITAL SCREENING MAMMOGRAM 3D/2D: 12/25/2021 CLINICAL: Routine screening. Comparison is made to exams dated: 02/14/2020 mammogram, 10/07/2018 mammogram, 10/06/2017 mammogram, 12/2016 mammogram, and 09/14/2015 mammogram - [facility]. Both breasts are heterogeneously dense, which may obscure small masses (category c / 51-75% glandula r tissue). No significant masses, calcifications, or other findings are seen in either breast. There has been no significant interval change. IMPRESSION: NEGATIVE There is no mammographic evidence of malignancy. A 1 year screening mammogram is recommended. This exam was interpreted at Station ID: [id number]. NOTE: For mammograms, a report in lay terms will be sent to the patient. Approximately 15% of breast malignancies will not be visualized mammographically. In the management of a palpable breast mass, a negative mammogram must not discourage biopsy of a clinically suspicious lesion. Electronically Signed By: Darnell Perez M.D. at/chaorad:12/26/2021 07:24:01 ACR BI-RADS Category 1: Negative 3341F PARENCHYMAL PATTERN: (D) - The breast(s) demonstrate(s) heterogeneously dense fibroglandular agus bach. BI-RADS CATEGORY: (1) - 1 RECOMMENDATION: (ANNUAL) - Recommend routine annual screening mammography. [id number] 1 year screening LATERALITY: (B)
== END 2021-12-25 10:20 | disposition home or self-care (01) ==
LOC: DI 10:19
DX: Z12.31 Encounter for screening mammogram for malignant neoplasm of breast (principal)

== ENCOUNTER 2022-01-15 12:32 | Outpatient (CLI) | payer MEDICARE, OTHER | END 2022-01-15 12:33 | disposition home or self-care (01) | LOC: DI 12:32 | PROVIDERS: ATTEND Nurse Practitioner | DX: G43.909 Migraine, unspecified, not intractable, without status migrainosus (principal); Q21.12 Patent foramen ovale | CPT/HCPCS: 93306 ==

== ENCOUNTER 2022-12-16 14:12 | Outpatient (CLI) | payer MEDICARE, OTHER ==
--- NOTE | 2022-12-16 18:30 | MRI Report ---
PROCEDURE: CERVICAL SPINE WO INDICATIONS: CERVICALGIA TECHNIQUE: Noncontrast sagittal T1 spin echo and T2 fast spin echo, sagittal STIR, foraminal oblique sagittal T2 fast spin echo, and axial gradient echo or T2 fast spin echo through the cervical spine. COMPARISON: None. FINDINGS: Image quality: Excellent. Alignment and Curvature: There is normal bony alignment. Bone Marrow: Marrow demonstrates normal overall signal. Spinal Cord: Visualized spinal cord has normal size and signal. No cerebellar tonsillar herniation. Paraspinous Soft Tissues: No paravertebral masses. Prevertebral soft tissues are normal in thicknes s. C2-C3: The disc height is well-preserved. There is loss of disc signal seen. Mild disc osteophyte complex is seen. Mild facet hypertrophy is seen. There is mild right-sided and no left-sided neur oforaminal narrowing. Minimal central canal narrowing is seen. C3-C4: Mild to moderate loss of disc height and disc signal can be seen. Mild disc osteophyte comp bernadette is seen. Moderate facet hypertrophy is seen, right worse than left. There is moderate to severe r ight-sided and moderate left-sided neuroforaminal narrowing. Minimal central canal narrowing is seen. C4-C5: At least moderate loss of disc height and disc signal can be seen. Mild disc osteophyte comp bernadette is seen. Moderate facet hypertrophy is seen. There is moderate to severe bilateral neuroforamina l narrowing seen, right worse than left. Minimal central canal narrowing is seen. C5-C6: Moderate loss of disc height and signal are seen. Moderate disc osteophyte complex is seen. Moderate facet hypertrophy is seen. There is moderate to severe bilateral neuroforaminal narrowing seen. Mild central canal narrowing is seen. C6-C7: Moderate loss of disc height and signal are seen. Mild to moderate disc osteophyte complex is seen, which is eccentric to the left. Mild to moderate facet hypertrophy is seen. There is moderate to severe left-sided and moderate right-sided neuroforaminal narrowing. No central canal narrowing is seen. C7-T1: Mild loss of disc height and disc signal are seen. Mild disc osteophyte complex is seen. The re is moderate right-sided and mild left-sided facet hypertrophy. There is moderate right-sided and n o left-sided neuroforaminal narrowing. No significant central canal narrowing is seen. IMPRESSION: Multiple levels of cervical spine degenerative change can be seen, which are overall worst at C4-C5 a nd C5-C6. Reviewed by: Jhoan Velasco MD on 12/16/2022 5:29 PM [facility] Approved by: Jhoan Velasco MD on 12/16/2022 5:29 PM [facility] Station ID: [id number]
== END 2022-12-16 14:13 | disposition home or self-care (01) ==
LOC: DI 14:12
PROVIDERS: ATTEND Orthopaedic Surgery
DX: M47.812 Spondylosis without myelopathy or radiculopathy, cervical region (principal)

== ENCOUNTER 2023-03-11 14:39 | Outpatient (CLI) | payer MEDICARE, OTHER ==
--- NOTE | 2023-03-13 11:48 | Mammography Report ---
BILATERAL DIGITAL SCREENING MAMMOGRAM 3D/2D: 03/11/2023 CLINICAL: Routine screening. Comparison is made to exams dated: 12/25/2021 mammogram, 02/14/2020 mammogram, 10/06/2017 mammogram, a nd 10/07/2018 mammogram - [facility]. Both breasts are heterogeneously dense, which may obscure small masses (category c / 51-75% glandular tissue). No significant masses, calcifications, or other findings are seen in either breast. There has been no significant interval change. IMPRESSION: NEGATIVE There is no mammographic evidence of malignancy. A 1 year screening mammogram is recommended. Based on the Tyrer Cuzick model (a risk assessment model) the patients lifetime risk is 16.3% and he r 10 year risk is 10.6%. According to the ACR, ACS, and NCCN guidelines, an annual breast MRI exam al gagan with mammogram is recommended if the patients lifetime risk is 20% or greater. This exam was interpreted at Station ID: [id number]. NOTE: For mammograms, a report in lay terms will be sent to the patient. Approximately 15% of breast malignancies will not be visualized mammographically. In the management of a palpable breast mass, a negative mammogram must not discourage biopsy of a clinically suspicious lesion. Electronically Signed By: Chavez Corcoran M.D. [facility] [place]03/12/2023 17:25:25 ACR BI-RADS Category 1: Negative 3341F PARENCHYMAL PATTERN: (D) - The breast(s) demonstrate(s) heterogeneously dense fibroglandular agus bach. BI-RADS CATEGORY: (1) - 1 Mammogram [id number] 1 year screening LATERALITY: (B)
== END 2023-03-11 14:40 | disposition home or self-care (01) ==
LOC: DI 14:39
DX: Z12.31 Encounter for screening mammogram for malignant neoplasm of breast (principal); R92.333 Mammographic heterogeneous density, bilateral breasts

== ENCOUNTER 2023-09-22 08:08 | Day surgery (SDC) | payer MEDICARE, OTHER ==
[2023-09-22] MEDS ORDERED: PROPOFOL 500 MG/50 ML 500 MG/50 ML VIAL ONE (08:09)
[2023-09-22] MEDS: LACTATED RINGERS 1,000 ML IV ONE (08:24)
--- NOTE | 2023-09-22 09:17 | ANESTHESIA ---
Pre-Anesthesia VS, & Labs - Diagnosis hx polyps - Procedure colonoscopy Vital Signs: Temp Pulse Resp BP Pulse Ox O2 Flow Rate 36.2 C L 56 L 14 111/64 100 09/22/23 08:31 09/22/23 08:31 09/22/23 08:31 09/22/23 08:31 09/22/23 08:31 Height: 5 ft 3 in Weight (kg): 61.3 kg Body Mass Index: 23.9 BMI Classification: Normal - NPO Last Fluid Intake: 399 - Is Patient ?: No Home Medications and Allergies Home Medications: Ambulatory Orders Doxepin [SINEquan] 25 mg PO QPM 09/21/23 Escitalopram [Lexapro] 10 mg PO DAILY 09/21/23 Ipratropium [place] 2 sprays DEWEY DAILY 09/21/23 Rimegepant Sulfate [Nurtec Odt] 75 mg PO DAILY PRN 09/21/23 nadoloL [Nadolol] 40 mg PO DAILY 03/03/18 Doxepin [SINEquan] 25 mg PO QPM 09/21/23 Escitalopram [Lexapro] 10 mg PO DAILY 09/21/23 Ipratropium [place] 2 sprays DEWEY DAILY 09/21/23 Rimegepant Sulfate [Nurtec Odt] 75 mg PO DAILY PRN 09/21/23 Allergies/Adverse Reactions: Allergies Allergy/AdvReac Type Severity Reaction Status Date / Time No Known Drug Allergies Allergy Verified 09/03/20 10:44 Anes History & Medical History - Anesthetic History Anesthesia Complications: reports: No previous complications Family history of Anesthesia Complications: Denies - Medical History Cardiovascular: reports: None Pulmonary: reports: None Gastrointestinal: reports: Colon polyps, Ulcerative colitis Urinary: reports: None Neuro: reports: 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; memory problems, some) Musculoskeletal: reports: Osteoarthritis Endocrine/Autoimmune: reports: None Skin: reports: None Smoking Status: Never smoker - Surgical History General: reports: Colonoscopy Eyes Ears Nose Throat (EENT): reports: Tonsil/Adenoidectomy Gynecologic: reports: Hysterectomy, Other Orthopedic: reports: Other Results - EKG Results EKG Comparison: Reviewed EKG - Echo Results Echo Results: Report reviewed Exam General: Alert, Oriented x3 Dental: WNL Mouth Openin Fingerbreadth Neck Mobility: Normal Mallampati classification: II Thyromental Distance: 4-6 cm Plan Anesthesia Type: Total IV Consent for Procedure(s) Verified and Reviewed: Yes Code Status: Attempt Resuscitation ASA classification: 2-Mild systemic disease Is this case an emergency?: No
[2023-09-22] MEDS ORDERED: ePHEDrine 50 MG/ML VIAL IVP ONE (09:35)
[2023-09-22] MEDS: LACTATED RINGERS 600 ML IV ONE ×2 (09:59→10:26)
[2023-09-22 10:17] VITALS: O2SAT 100
[2023-09-22 10:27] VITALS: BP 111/64
--- NOTE | 2023-09-22 13:10 | ANESTHESIA POST OP EVALUATION ---
Anesthesia Post Eval - Post Anesthesia Eval Vitals: Last Vital Signs Temp 36.2 C L 09/22/23 10:26 Pulse 58 L 09/22/23 10:26 Resp 16 09/22/23 10:26 BP 111/64 09/22/23 10:26 Pulse Ox 100 09/22/23 10:26 O2 Flow Rate CV Function Including HR & BP: Stable Pain Control: Satisfactory Nausea & Vomiting: Negative Mental Status: Baseline Respiratory Status: Airway Patent Hydration Status: Satisfactory Anesthesia Complications: None
== END 2023-09-22 08:09 | disposition home or self-care (01) ==
LOC: SDS 08:08
PROVIDERS: ATTEND Surgery
PROC: 0DBP8ZZ Excision of Rectum, Via Natural or Artificial Opening Endoscopic (ICD-10-PCS; 2023-09-22)
PROC: 0DBM8ZZ Excision of Descending Colon, Via Natural or Artificial Opening Endoscopic (ICD-10-PCS; principal; 2023-09-22 09:30)
DX: Z12.11 Encounter for screening for malignant neoplasm of colon (principal); K63.5 Polyp of colon; K62.1 Rectal polyp; K57.30 Diverticulosis of large intestine without perforation or abscess without bleeding; Z87.820 Personal history of traumatic brain injury
CPT/HCPCS: 45380; 45385; J7120